=== PATIENT | male | born 1945 | race Two or more races ===

== ENCOUNTER 2019-10-30 19:11 | Emergency (ER) | payer OTHER, MEDICAID ==
[~2019-10-30] VITALS: Ht 177.8 cm; Wt 102.5 kg
--- NOTE | 2019-10-30 19:30 | NUR ---
Patient brought in by rescue ambulance from [facility] for epigastric pain. Per rescue patient was given nitro at facility with no relief. Patient denies pain on arrival. Patient is alert and oriented x 4. Placed on bedside monitor. 20g Placed to Lt forearm, blood drawn for analysis. EKG done on arrival. Patient in no acute distress. Awaiting MD rangel.
--- NOTE | 2019-10-30 19:38 | NUR ---
Dr. Montano at bedside examining patient.
[2019-10-30] MEDS ORDERED: MAG HYDROX/AL HYDROX/SIMETH 30 ML LIQUID UDC PO ONE (19:45)
[2019-10-30] MEDS ORDERED: PANTOPRAZOLE SODIUM 40 MG VIAL IV ONE (19:45)
[2019-10-30] MEDS ORDERED: DICYCLOMINE HCL LIQ 10 MG/5 ML UDC PO ONE (19:45)
[2019-10-30] MEDS ORDERED: DICYCLOMINE HCL LIQ 10 MG/5 ML UDC ONE (19:51)
[2019-10-30] MEDS ORDERED: PANTOPRAZOLE SODIUM 40 MG VIAL ONE (19:51)
[2019-10-30] MEDS ORDERED: MAG HYDROX/AL HYDROX/SIMETH 30 ML LIQUID UDC ONE (19:53)
--- NOTE | 2019-10-30 20:15 | NUR ---
Spoke with Hilario from [facility] transport with trip# [id number] with an ETA of [id number]. Patient made aware. No further concerns at this time.
--- NOTE | 2019-10-30 20:35 | NUR ---
Patient ambulated to restroom with steady gait. Denies any pain or discomfort at this time. No acute distress noted
--- NOTE | 2019-10-30 22:28 | NUR ---
Patient discharged back to facility via [facility] in stable condition. IV dc'd noted with tip intact. No acute distress. Denied chest pain and denied shortness of breath on discharge.
[2019-10-30 22:36] VITALS: BP 153/74
== END 2019-10-30 22:28 | disposition home or self-care (01) ==
LOC: ER 19:13
DX: K21.0 Gastro-esophageal reflux disease with esophagitis (principal); J44.9 Chronic obstructive pulmonary disease, unspecified; E78.5 Hyperlipidemia, unspecified
CPT/HCPCS: 96374; 99283; C9113; A4663